=== PATIENT | female | born 1970 | race Caucasian/White ===

== ENCOUNTER 2020-09-15 06:27 | Day surgery (SDC) | payer BC ==
[2020-09-01 14:38] LABS: Absolute Lymphocytes (CBC) 2.7 K/uL (0.7-4.9); Basophils % 0.8 % (0-1.3); Hematocrit 41.6 % (36.0-45.0); Lymphocytes % 25.8 % (15.3-44.8); MPV 7.4 fL (7.6-11.3); RBC Red Blood Cell Count 4.67 M/uL (3.86-4.86)
[2020-09-01 14:46] LABS: Urine Appearance CLEAR (Clear); Urine Bilirubin NEGATIVE (Negative); Urine Blood NEGATIVE (Negative); Urine Color YELLOW (Yellow); Urine Glucose NEGATIVE (Negative); Urine Protein NEGATIVE (Negative); Urine Specific Gravity <=1.005 (1.005-1.030); Urine Urobilinogen 0.2 mg/dL (0.2-1.0)
[2020-09-01 14:49] LABS: Urine Microscopic Reflex NO UMIC
[2020-09-15] MEDS ORDERED: Ringers Lactate 1,000 ML IV ONE ×2 (07:08→07:20)
[2020-09-15] MEDS ORDERED: SCOPOLAMINE HYDROBROMIDE PATCH TD ONE (07:08)
[2020-09-15] MEDS ORDERED: CEFAZOLIN/SWI 2gm 2 GM/20 ML SYR ONE (07:08)
[2020-09-15] MEDS ORDERED: BUPIVACAINE 0.25% PF 30 ML VIAL ONE (07:20)
[2020-09-15] MEDS ORDERED: propofoL 200 MG/20 ML VIAL IV ONE (07:34)
[2020-09-15] MEDS ORDERED: GLYCOPYRROLATE 0.2 MG/ML SYR ONE ×2 (07:35→07:36)
[2020-09-15] MEDS ORDERED: ROCURONIUM 50 MG/5 ML VIAL IV ONE ×3 (07:35→09:08)
[2020-09-15] MEDS ORDERED: LIDOCAINE 2% MPF 5 ML VIAL ONE (07:36)
[2020-09-15] MEDS ORDERED: FENTANYL CITR 250 MCG/5 ML ONE (07:37)
[2020-09-15] MEDS ORDERED: MIDAZOLAM HCL 2 MG/2 ML INJ ONE (07:37)
[2020-09-15] MEDS ORDERED: ONDANSETRON 4 MG/2 ML VIAL ONE (07:38)
[2020-09-15] MEDS ORDERED: dexAMETHasone 10 MG/ML VIAL ONE (07:57)
[2020-09-15] MEDS ORDERED: Phenylephrine HCl 10 MG/ML 1 ML VIAL ONE (08:21)
[2020-09-15] MEDS ORDERED: EPHEDRINE SULF 50 MG/ML VIAL ONE (08:21)
[2020-09-15] MEDS ORDERED: KETOROLAC 30 MG/ML INJ ONE (10:15)
[2020-09-15] MEDS ORDERED: HYDROMORPHONE HCL 1 MG/ML INJ ONE (11:09)
[2020-09-15] MEDS ORDERED: HYDROCODONE/APAP 7.5/325 MG TAB PO ONE (12:05)
[2020-09-15] MEDS ORDERED: HYDROCODONE/APAP 7.5/325 MG TAB ONE (12:24)
[2020-09-15 14:11] VITALS: BP 122/73; TEMP 98; O2SAT 99
--- NOTE | 2020-09-26 07:33 | OP ---
Date of Procedure: 09/15/2020 Surgeon: Meenu Valdes MD Psychic Reader: Anny Bunch. Preoperative Diagnosis: Menorrhagia, left lower quadrant pain. 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 Procedures Performed: Total laparoscopic hysterectomy, bilateral salpingectomy, extensive endometrio sis excision, left ureterolysis and cystoscopy. Anesthesia: General endotracheal. Specimens: Uterus, bilateral tubes, endometriosis of the left lateral wall periureteric area and the left lateral and anterior abdominal wall implants were also handed out for permanent pathology. Estimated Blood Loss: Minimal. Condition: The patient's condition was stable. Indications: The patient is a 50-year-old lady with heavy bleeding and significant left lower quadra nt pain. On transvaginal ultrasound, no abnormal masses were seen. On endometrial sampling, no evid ence of atypia or malignancy. She failed medical management and given the pain, ready to have this t aken care of definitively with the help of a hysterectomy. All alternatives were discussed and she w as consented and she was taken to the OR understanding that if there was endometriosis found at the t op that could not be removed to warrant a bilateral oophorectomy that it would be done. She was cons ented for bilateral salpingo-oophorectomy only if endometriosis could not be cleared. The prognosis could be bad . Description Of Procedure: After re-consented in the preop area and her was present for askin g questions, she was consented and taken back to OR. After placing her on the operating table in a s upine fashion, general anesthesia was given. She was placed in dorsal lithotomy position using Joshua stirrups. Arms were positioned by the sides . Abdomen, vulva, vagina, and perineum were prepped and draped in a sterile fashion. Monge was placed to drain the bladder. Speculum placed to expose the cervix. A vaginal manipulator introduced, a large one and Monge attached for retrograde f illing. A 1 cm infraumbilical incision was made with a scalpel using the open laparoscopy technique. Fascia was incised and tagged with 0 Vicryl sutures. Peritoneum entered bluntly. S retractors were placed. Carolina introduced. Adequate insufflation done and site of entry was checked, unremarkable. The pa tient was placed in Trendelenburg to see the anterior abdominal wall, left lateral aspect, large endo metriosis implants close to the sigmoid and on anteversion of the uterus, one large and other side sm all leiomyomata were seen. Both ovaries were well visualized and were unremarkable both tubes as wel l. The left lateral wall endometriosis that was significant and was closer to the ureter on gross ex amination, with periureteric extending all the way from the lateral superior aspect of the ureter all the way across the ureter close to the uterosacral ligament coming across it. So, given the patient 's significant pelvic pain, I decided to perform a good endometriosis excision besides just a hystere ctomy and salpingectomy. Oophorectomy was not warranted, and the implants were present co uld be the reason for her pain. Given this patient's deep infiltrating endometriosis, plan was to pe rform a ureterolysis. The tube was removed. A 5 left lower quadrant and right lower quadrant ports were placed. Suprapubi c port was placed. The bowel was grasped and retracted superiorly with 0 Vicryl suture and pulled ou t through the left upper quadrant incision using Osorio Cotter needle and held on a hemostat for re traction, additionally. Then, taking down the mesosalpinx and tubes with the help of the LigaSure, uterine leiomyomata ____ and then went on to take down the anterior broad ligament all the way to the bladder flap and po sterior broad ligament all the way to the uterosacral and then the broad ligament was cauterized and cut. Then, here dissection was performed along the medial leaf of the broad ligament to separate the ureter from the medial leaf of the broad ligament. Once this was done, then dissection was performe d between the ureter and internal iliac artery this and dissecting it all the way to the o rigin of the uterine artery. The uterine artery and the ureter were dissected to the level of the ur eteric tunnel and once the entire ureter was skeletonized, the endometriosis was stripped off from th e ureter to separate the medial leaf of the broad ligament from the peritoneum. At the level of the ureteric tunnel, there was entrapment as well and this was cleared up and the ureter was free. No ev idence of any injury to the ureter here. The endometriosis was excised and handed off for permanent pathology. The vessels were skeletonized very well and 2 clips were placed on the uterine vessel lat eral to the ureter for good hemostasis and then I went on the opposite side. The mesosalpinx was morenita en down, tubes detached, utero-ovarian ligament taken down, round ligament taken down. Anterior broa d ligament connected to create a bladder flap and bladder dissected adequately on the anterior vagina l wall to visualize the cup uterosacral. No other implants were seen here. There was a sm all amount of scar tissue at the distal uterosacral, which was included with the peritoneal dissectio n so that if there were any implants, that these could be removed. Broad ligament was taken down to skeletonize the vessels. Vessels were identified and isolated, did not have to dissect the ureter on this side as there were no implants. Then vessels taken down with the help of the bipolar basket tip and the LigaSure and cardinal ligament was taken down with the Lig aSure on the right side. Then on the left side similar dissection was performed medially to open the space between the vessels and the cervix. Bipolar basket tip was used to cauterize and then the Lig aSure to cut. The cardinal ligament was taken down as well. Circumferential colpotomy was performed with a monopolar hook blade and specimen attempted to be removed through the vagina like usual, but this would not come out as this was too large to fit through the apex. The patient was also signific antly obese for opening up the vaginal canal . So went down and placed the speculum in the posterior aspect and anterior aspect as well and with the small [place] retractors, retraction was done on the anterior vaginal wall so that I could morcellate the uterine specimen carefully and removed it. Once this was attached, vaginal occluder sponge was placed. Gloves and gown were changed and superiorly and dissected endometriosis in the left lateral wall. Th e sigmoid dissected away, peritoneum scored and excised with the LigaSure and dissected free and the endometriotic free from the wall. This was handed off for permanent pathology as well. The ovaries were in place and excellent support was present without any chance for torsion and then I went ahead and closed the vaginal cuff. Two simple 0 Vicryl sutures first at the left end and then at the right end. However, on the right end, there was a lot more of vaginal connective tissue left that had to be closed. So I put another [id number] lateral to it, so we decided to perform a cystoscopy and then, in the middle, it was very difficult for me to open the vaginal canal to put the central figur e-of-eight stitch, so I decided to do this vaginally and this closed the abdominal incision. After t horough suction and irrigation, all the trocar were injected with Marcaine at the skin and fascia. T hen, all the gas was desufflated after the with 0 Vicryl sutures tagged and tied to each o ther, all the skin incisions were closed with interrupted 4-0 Vicryl. The bowel was released using 3 -0 Monocryl and was well visualized . Vaginally, retractors were placed and extremely difficult to visualize the vaginal apex. However, a stitch was placed to retract the wall and expose the apex. a separation, which was not fu lly closed. It was closed with the help of a 0 Vicryl stitch closure. No evidence of any leakage of peritoneal fluid. Thorough irrigation was performed here and vaginal cuff was well closed and supported. Then changed gloves and cystoscopy was performed. Excellent jets of uri ne from both ureteric orifices. No evidence of any trauma to the bladder. The bladder was drained. Instrument, needle, and sponge counts were done and were correct at the end of the case. The patien jonathan tolerated the procedure well. She was recovered from anesthesia and taken to PACU in stable condit ion. For the procedure, I think this was a difficult procedure due to her obesity, needing more complex ma neuvering, to close the vaginal cuff and the vaginal dissection during the entire time. I also thoug ht that I spent more time on the left ureterolysis because I had to remove the endometriosis and stri p it off from the ureter, in order to give pain relief for the patient's left lower quadrant pain. F or this reason, we did not have to and the uterus was large enough because of fibroids wou ld not fit through her small vaginal cuff. I did a morcellation . DEBBY Voice ID: [id number] Report ID: [id number]
== END 2020-09-15 14:00 | disposition home or self-care (01) ==
LOC: OR 06:27
PROVIDERS: ATTEND Obstetrics & Gynecology
PROC: 0UT74ZZ Resection of Bilateral Fallopian Tubes, Percutaneous Endoscopic Approach (ICD-10-PCS; 2020-09-15)
PROC: 0DBW4ZZ Excision of Peritoneum, Percutaneous Endoscopic Approach (ICD-10-PCS; 2020-09-15)
PROC: 0UT94ZZ Resection of Uterus, Percutaneous Endoscopic Approach (ICD-10-PCS; principal; 2020-09-15 07:30)
DX: D25.9 Leiomyoma of uterus, unspecified (principal); N80.3 Endometriosis of pelvic peritoneum; R10.32 Left lower quadrant pain; N83.292 Other ovarian cyst, left side; I10 Essential (primary) hypertension; N88.8 Other specified noninflammatory disorders of cervix uteri; N83.8 Other noninflammatory disorders of ovary, fallopian tube and broad ligament; Z20.822 Contact with and (suspected) exposure to COVID-19
CPT/HCPCS: 85025; 36415; 86900; 86850; 86901; 88305; 88307; 81003; 58571; 58662; U0003; J2704; J2370; J2250; J3010; J1100; J1170; J0690; J7120 ×2; J2405